=== PATIENT | male | born 1965 | race Hispanic/Latino ===

== ENCOUNTER 2019-01-25 18:07 | Emergency (ER) | payer BC ==
[~2019-01-25] VITALS: Ht 172.7 cm; Wt 74.8 kg
--- OUTSIDE RECORDS SUMMARY | 2019-01-25 18:09 | XMS REPORT | Clinical Summary ---
Author Author [facility] Address Unknown Phone Unavailable Care Team Providers Care Insecticide Supervisor Name Role Phone Asked, No Pcp PCP Unavailable Allergies No Known Allergies Medications No known medications Active Problems Problem Noted Date Neuropathy 05/14/2018 Encounters Care Team Description Date Type Specialty Darío Sue MD Right ankle pain, unspecified chronicity (Primary Dx); Neuropathy 05/14/2018 Office Visit Orthopedic Surgery after 01/24/2018 Family History Medical History Relation Name Comments No Known Problems Father No Known Problems Mother Relation Name Status Comments Father Mother Social History Date Tobacco Use Types Packs/Day Years Used Never Smoker Smokeless Tobacco: Never Used Alcohol Use Drinks/Week oz/Week Comments No Sex Assigned at Date Recorded Not on file Industry Job Start Date Occupation Not on file Not on file Not on file Travel End Travel History Travel Start No recent travel history available. Last Filed Vital Signs Time Taken Vital Sign Reading 05/14/2018 9:07 AM CDT Blood Pressure 131/81 05/14/2018 9:07 AM CDT Pulse 72 - Temperature - - Respiratory Rate - - Oxygen Saturation - - Inhaled Oxygen - Concentration 05/14/2018 9:07 AM CDT Weight 72.6 kg (160 lb) 05/14/2018 9:07 AM CDT Height 175.3 cm (5' 9") 05/14/2018 9:07 AM CDT Body Mass Index 23.63 Plan of Treatment Health Maintenance Due Date Last Done Comments COLONOSCOPY SCREENING 2016 SHINGLES VACCINES (#1) 2016 INFLUENZA VACCINE 02/21/2019 Procedures Comments Procedure Name Priority Date/Time Associated Diagnosis XR ANKLE 3+ VW RIGHT Routine 05/14/2018 Right ankle pain, 9:00 AM CDT unspecified chronicity after 01/24/2018 Results * XR Ankle 3+ Vw Right (05/14/2018 9:00 AM CDT) Specimen Narrative Performed At [facility] No fractures or dislocations. Patient with significant medial impingement from old injury. No posttraumatic arthritis noted. Performing Organization Address City/State/Zipcode Phone Number [facility] [address] [place] [address] after 01/24/2018 Insurance Type Payer Benefit Subscriber ID Effective Phone Address Plan / Dates Group PPO BCBS BCBS OUT xxxxxxxxxxxx 2018- OF STATE Present Advance Directives Patient has advance care planning documents on file. For more information, evita wilkins contact: Scott Carias [address] [place] [address]
--- OUTSIDE RECORDS SUMMARY | 2019-01-25 18:09 | XMS REPORT ---
Author Author [facility] Address Unknown Phone Unavailable Care Team Providers Care Branding Machine Operator Name Role Phone Unavailable Unavailable Payers Payer Name Policy Type Policy Number Effective Date Expiration Date Problems This patient has no known problems. Allergies, Adverse Reactions, Alerts Allergy Name Allergy Type Status Severity Reaction(s) Onset Date Inactive Date Treating Clinician Comments codeine DA Active [place] 2018-08-03 00:00:00 codeine DA Active [place] 2017-06-01 00:00:00 Medications This patient has no known medications.
[2019-01-25] MEDS ORDERED: SODIUM CHLORIDE 0.9% 1000ML 1,000 ML IV SCH (18:30)
[2019-01-25 18:47] LABS: BASOPHILS # (AUTO) 0.1 (0.0-0.1); EOSINOPHILS # (AUTO) 0.1 (0.0-0.4); EOSINOPHILS % 1.6 % (0.0-6.0); HEMATOCRIT 43.4 % (38.2-49.6); HEMOGLOBIN 15.7 g/dL (14.0-18.0); LYMPHOCYTES # (AUTO) 2.3 (1.0-3.2); LYMPHOCYTES % 32.7 % (18.0-39.1); MEAN CORPUSCULAR HEMOGLOBIN 30.7 pg (28-32); MEAN CORPUSCULAR HGB CONC 36.2 g/dL (31-35); MEAN CORPUSCULAR VOLUME 84.8 fL (81-99); MONOCYTES # (AUTO) 0.5 (0.2-0.8); MONOCYTES % 6.7 % (4.4-11.3); NEUTROPHILS % 57.7 % (38.7-80.0); PLATELET COUNT 262 x10e3/uL (140-360); RED BLOOD COUNT 5.12 x10e6/uL (4.3-5.7); RED CELL DISTRIBUTION WIDTH 13.2 % (11.7-14.4)
[2019-01-25 18:59] LABS: BLOOD UREA NITROGEN 11 mg/dL (7-26); BUN/CREATININE RATIO 11 (6-25); CALCIUM 9.5 mg/dL (8.4-10.2); CARBON DIOXIDE 20 mmol/L (22-29); CHLORIDE 107 mmol/L (98-107); CREATINE KINASE 142 IU/L (30-200); CREATININE, SERUM 1.01 mg/dL (0.72-1.25); EST GLOMERULAR FILTRATION RATE > 60 ML/MIN (60-); GLUCOSE 151 mg/dL (74-118); SODIUM 138 mmol/L (136-145)
--- NOTE | 2019-01-25 19:10 | NUR ---
pt states he's starting to feel better and numbness/tingling is starting to go away
[2019-01-25 21:12] VITALS: BP 127/88
== END 2019-01-25 21:24 | disposition home or self-care (01) ==
LOC: ER 18:07
DX: R20.2 Paresthesia of skin (principal); F41.1 Generalized anxiety disorder; M54.9 Dorsalgia, unspecified; G89.29 Other chronic pain
CPT/HCPCS: 36415; 80048; 82550; 83735; 85025; 93005; 99284; J7030